=== PATIENT | female | born 1985 | race Hispanic/Latino ===

== ENCOUNTER 2024-02-09 09:16 | Emergency (ER) | payer MEDICAID ==
[~2024-02-09] VITALS: Ht 152.4 cm; Wt 82.1 kg
[2024-02-09 09:19] VITALS: BP 136/77; PULSE 87; RESP 18
[2024-02-09 09:51] LABS: BASOPHILS # (AUTO) 0.03 K/uL (0.00-0.20); BASOPHILS % (AUTO) 0.4 % (0.0-5.0); EOSINOPHILS # (AUTO) 0.06 K/uL (0.00-0.70); EOSINOPHILS % (AUTO) 0.7 % (0.0-8.0); IMMATURE GRANULOCYTE ABSOLUTE 0.03 K/uL (0-1); LYMPHOCYTES # (AUTO) 1.2 K/uL (1.0-4.8); LYMPHOCYTES % (AUTO) 13.9 % (21.0-51.0); MEAN CORPUSCULAR HEMOGLOBIN 30.3 pg (27.0-33.0); MEAN CORPUSCULAR HGB CONC 34.4 g/dL (32.0-36.0); MONOCYTES # (AUTO) 0.6 K/uL (0.1-1.0); MONOCYTES % (AUTO) 6.7 % (3.0-13.0); NEUTROPHILS # (AUTO) 6.5 K/uL (1.8-7.7); NEUTROPHILS % (AUTO) 77.9 % (40.0-77.0); PLATELET COUNT (AUTO) 281 K/uL (130-400); RED BLOOD CELL COUNT(AUTO) 4.66 MIL/uL (4.00-5.50); RED CELL DISTRIBUTION WIDTH 12.5 % (11.0-15.5); WHITE BLOOD COUNT (AUTO) 8.3 K/uL (4.8-10.8)
[2024-02-09] MEDS: ONDANSETRON ODT 4MG TAB SL ONE (09:57)
[2024-02-09] MEDS: KETOROLAC 30MG VIAL (30MG/ML) IM ONE (10:00)
[2024-02-09 10:03] LABS: CREATININE 0.7 mg/dL (0.5-1.0); POTASSIUM 3.3 mmol/L (3.5-5.1)
[2024-02-09 10:10] LABS: ALBUMIN 4.2 g/dL (3.5-5.0); BILIRUBIN,TOTAL 0.4 mg/dL (0.2-1.0); TOTAL PROTEIN, SERUM 8.3 g/dL (6.0-8.3)
[2024-02-09 10:12] LABS: RAPID GROUP A STREP negative (NEGATIVE)
[2024-02-09 10:21] LABS: COVID19 (SARS ANTIGEN RAPID) PRESUMPTIVE NEGATIVE (NEGATIVE); INFLUENZA TYPE A Negative For Type A (NEGATIVE); INFLUENZA TYPE B Negative For Type B (NEGATIVE)
[2024-02-09] MEDS: POTASSIUM BICARB/CIT AC 25 MEQ TABLET.EFF PO ONE (10:24)
[2024-02-09 10:25] LABS: APPEARANCE,URINE TURBID (CLEAR); BILIRUBIN,URINE NEGATIVE (NEGATIVE); COLOR,URINE YELLOW (YELLOW); GLUCOSE, URINE (UA) NEGATIVE (NEGATIVE); KETONES,URINE NEGATIVE (NEGATIVE); LEUKOCYTE ESTERASE ,URINE 500 Leu/uL (NEGATIVE); NITRATE,URINE NEGATIVE (NEGATIVE); OCCULT BLOOD,URINE MODERATE (NEGATIVE); PH,URINE 6.5 (5.0-8.0); PROTEIN,URINE 100 mg/dL (NEGATIVE); UROBILINOGEN,URINE 0.2 mg/dL (0.2-1.0)
[2024-02-09 10:27] LABS: ADD UA MICROSCOPIC YES
[2024-02-09] MEDS ORDERED: IBUP-2070 PO (10:31)
[2024-02-09] MEDS ORDERED: ONDA4TAB10 PO (10:31)
[2024-02-09 10:33] LABS: BACTERIA,URINE FEW /HPF (None Seen); MUCUS,URINE MANY LPF (None Seen); SQUAMOUS EPITHELIAL CELL,UR MANY /HPF (0-2); WBC,URINE 51-100 /HPF (0-1)
[2024-02-09] MEDS ORDERED: CEPH500B PO (10:40)
[2024-02-09] MEDS: CEFTRIAXONE 1G VIAL IM ONE (10:45)
== END 2024-02-09 10:57 | disposition home or self-care (01) ==
LOC: EDH 09:16
DX: N39.0 Urinary tract infection, site not specified (principal); R68.83 Chills (without fever); R11.10 Vomiting, unspecified; R07.89 Other chest pain; Z98.51 Tubal ligation status; Z20.822 Contact with and (suspected) exposure to COVID-19
CPT/HCPCS: 99284; 87426; 80053; 83690; 85025; 87088; 87880; 87804 ×2; 81001; 36415; 96372 ×2; J0696; J1885

== ENCOUNTER 2024-07-12 11:57 | Emergency (ER) | payer SELFPAY ==
[~2024-07-12] VITALS: Ht 149.9 cm; Wt 78.9 kg
[~2024-07-12 11:57] MED LIST: CEPH500B PO; IBUP-2070 PO; ONDA-243 PO
[2024-07-12 12:22] LABS: APPEARANCE,URINE CLEAR (CLEAR); BILIRUBIN,URINE NEGATIVE (NEGATIVE); COLOR,URINE LIGHT-YELLOW (YELLOW); GLUCOSE, URINE (UA) NEGATIVE (NEGATIVE); KETONES,URINE NEGATIVE (NEGATIVE); LEUKOCYTE ESTERASE ,URINE NEGATIVE Leu/uL (NEGATIVE); NITRATE,URINE NEGATIVE (NEGATIVE); OCCULT BLOOD,URINE SMALL (NEGATIVE); PROTEIN,URINE NEGATIVE (NEGATIVE); UROBILINOGEN,URINE 0.2 mg/dL (0.2-1.0)
[2024-07-12 12:31] LABS: ADD UA MICROSCOPIC YES
[2024-07-12 12:52] LABS: BASOPHILS # (AUTO) 0.03 K/uL (0.00-0.20); BASOPHILS % (AUTO) 0.3 % (0.0-5.0); EOSINOPHILS # (AUTO) 0.03 K/uL (0.00-0.70); EOSINOPHILS % (AUTO) 0.3 % (0.0-8.0); HEMATOCRIT 41.3 % (36-48); IMMATURE GRANULOCYTE ABSOLUTE 0.03 K/uL (0-1); LYMPHOCYTES # (AUTO) 1.2 K/uL (1.0-4.8); LYMPHOCYTES % (AUTO) 12.2 % (21.0-51.0); MEAN CORPUSCULAR HEMOGLOBIN 30.8 pg (27.0-33.0); MEAN CORPUSCULAR HGB CONC 33.9 g/dL (32.0-36.0); MEAN CORPUSCULAR VOLUME 90.8 fL (79-99); MONOCYTES # (AUTO) 0.5 K/uL (0.1-1.0); MONOCYTES % (AUTO) 5.1 % (3.0-13.0); NEUTROPHILS # (AUTO) 7.7 K/uL (1.8-7.7); NEUTROPHILS % (AUTO) 81.8 % (40.0-77.0); PLATELET COUNT (AUTO) 286 K/uL (130-400); RED BLOOD CELL COUNT(AUTO) 4.55 MIL/uL (4.00-5.50); RED CELL DISTRIBUTION WIDTH 12.7 % (11.0-15.5); WHITE BLOOD COUNT (AUTO) 9.4 K/uL (4.8-10.8)
[2024-07-12 13:00] LABS: HCG,QUALITATIVE URINE NEGATIVE (NEGATIVE)
[2024-07-12 13:05] LABS: POTASSIUM 3.9 mmol/L (3.5-5.1)
[2024-07-12 13:11] LABS: ALBUMIN 3.7 g/dL (3.5-5.0); BILIRUBIN,TOTAL 0.3 mg/dL (0.2-1.0); TOTAL PROTEIN, SERUM 7.4 g/dL (6.0-8.3)
[2024-07-12 13:13] LABS: BACTERIA,URINE RARE /HPF (None Seen); MUCUS,URINE RARE LPF (None Seen); RBC,URINE 26-50 /HPF (0-1); SQUAMOUS EPITHELIAL CELL,UR RARE /HPF (0-2)
[2024-07-12 14:53] VITALS: BP 122/79; PULSE 70; RESP 20; TEMP 97.9; O2SAT 98
== END 2024-07-12 14:54 | disposition home or self-care (01) ==
LOC: EDH 11:57
DX: N93.9 Abnormal uterine and vaginal bleeding, unspecified (principal); Z79.899 Other long term (current) drug therapy; Z98.890 Other specified postprocedural states
CPT/HCPCS: 36415; 80053; 81001; 81025; 85025

== ENCOUNTER 2025-02-06 19:12 | Emergency (ER) | payer SELFPAY ==
[~2025-02-06] VITALS: Ht 149.9 cm; Wt 79.8 kg
--- NOTE | 2025-02-06 19:37 | NUR ---
ICE PACK GIVEN, BLEEDING IS CONTROLLED.
--- NOTE | 2025-02-06 19:37 | ERN ---
ED Note History of Present Illness Stated Complaint: LEFT HAND FINGER INJURY Chief Complaint: Finger Injury Time Seen by MD: 19:13 Time Seen by Midlevel: 19:13 Dictation: Patient is a 39-year-old female with a history of tubal ligation who presents to the emergency department with complaints of pain to the distal left 3rd digit after she accidentally hit it with a new power tool while working on a closet. Patient reports up-to-date with tetanus a year ago. No other injuries reported. Allergies: Coded Allergies: No Known Drug Allergies (Unverified Allergy, Unknown, 02/09/24) Home Meds Active Scripts Cephalexin Monohydrate (Keflex) 500 Mg Cap, 500 MG PO QID for 7 Days, #28 CAP 0 Refills Prov:MIGUEL A GARCIA [facility] 02/09/24 Ibuprofen (Ibuprofen) 600 Mg Tablet, 600 MG PO Q6H PRN for PAIN, #20 TAB 0 Ref ills Prov:JOSEPRITESH STRONGEL [facility] 02/09/24 Ondansetron (Ondansetron Odt) 4 Mg Tab.rapdis, 4 MG PO Q6HPRN PRN for nausea, #12 TAB 0 Refills Prov:MIGUEL A GARCIA [facility] 02/09/24 Past Medical History Past Medical History: Anxiety Surgical History: Other Surgical History Other: TUBAL LIGATION LMP: Jan 10, 2025 : 2 Para: 2 RN Note Reviewed/Agreed w/PFSH: Yes Review of System Dictation Constitutional: Negative for fever,chills, and weight loss Eyes: Negative for injury, pain,redness, and discharge ENT: Negative for injury,pain or swelling Cardiovascular: Negative for chest pain, palpitations, and edema Respiratory: Negative for shortness of breath, cough, and wheezing, Abdomen/GI: Negative for abdominal pain, nausea, vomiting, diarrhea, and constipation Back: Negative for injury and pain : Negative for injury, bleeding and discharge MS/Extremity: Negative for injury and deformity positive for left 3rd finger injury Skin: Negative for rash, and discoloration Neuro: Negative for headache, weakness, numbness, tingling, and seizure Psych: Negative for suicide ideation, homicidal ideation, and hallucinations Initial Vital Sign VS Vital Signs Date Time Temp Pulse Resp B/P (MAP) Pulse Ox O2 Delivery O2 Flow Rate FiO2 02/06/25 19:22 98.1 100 20 161/86 100 Room Air Physical Exam Dictation Vital Signs reviewed General Appearance: Alert, oriented x 3, no acute distress, well developed, nourished. Head and Face: non-traumatic. Eyes: PERRL, pink conjunctivas, eyelid no trauma, anterior chamber with arcus senilis. Ears: Pinnas intact and no signs of trauma or erythema ear canals clear and no discharge TM no erythema Nose: No discharge, no bleeding. Oropharynx: Mouth normal, tongue pink. pharynx clear,no erythema, tonsils no exudates, no abscesses noted, mucous membrane moist Neck: Supple, non-tender, no thyromegaly, no masses, no JVD, no bruits Breast:Deferred Chest:No tenderness, no crepitus, no paradoxical movement, no retractions Lungs:Clear, well-ventilated, symmetric, no rales, no wheezing, no rhonchi, no stridor, good breath sounds bilaterally Heart: Regular rate, regular rhythm, no murmur, no gallops Vascular: no peripheral edema, Abdomen: Soft, positive bowel sounds, nondistended, no guarding, nontender, no rebound, no masses no hepatomegaly, no splenomegaly, no Lawrence's sign, no hernias. Rectal: Deferred Genital: Deferred Neurological: Normal speech, motor function intact, sensory function intact Musculoskeletal: Neck nontender, full range of motion, back nontender, full range of motion, Extremities: nontender, full range of motion , Skin: Color pink, dry, no turgor, no rash, no lacerations, no contusions. Small abrasion noted to lateral 3rd left nail, with no nail involvement Lymphatic: Deferred Results (Laboratory/Radiology) Laboratory/Radiology REASON: middle finger injury ORDERING PHYSICIAN: HARRISON DEWITT BLOOD BANK ATTENDANT PROCEDURE: FINGER RT - FINGER(S) 2+VWS RT LEFT THIRD FINGER RADIOGRAPHS - 3 VIEWS INDICATION: Middle finger injury COMPARISON: None FINDINGS: AP, lateral, and oblique views. No fracture or subluxation identified. No intrinsic osseous abnormality detected. No radiopaque foreign body noted. IMPRESSION: No evidence for fracture or subluxation. Labs Reviewed?: Yes ED Course ED Course Orders Procedure Category Date Status Time Finger(S) 2+Vws Rt RAD 02/06/25 Resulted 19:20 Wound Care (Er) CPOE 02/06/25 Transmitted 19:20 Neomy PHA 02/06/25 Complete Sulf/Bacitra/Polymyxin 19:30 Acetaminophen 500mg PHA 02/06/25 Complete Tab (Tylenol 500mg T 19:30 Current Medications Medications (Trade) Dose Ordered Sig/Earl Route PRN Reason Start Time Stop Time Status Last Admin Dose Admin Acetaminophen (TYLenol 500MG TAB) 1,000 mg ONCE ONCE PO 02/06/25 19:30 02/06/25 19:31 DC 02/06/25 19:45 Neomycin/ Polymyxin/ Bacitracin (Triple Antibiotic Ointment) 1 appl ONCE ONCE TP 02/06/25 19:30 02/06/25 19:31 DC 02/06/25 19:45 Vital Signs Date Time Temp Pulse Resp B/P (MAP) Pulse Ox O2 Delivery O2 Flow Rate FiO2 02/06/25 19:22 98.1 100 20 161/86 100 Room Air Medical Decision Making MDM Patient is a 39-year-old female with a history of tubal ligation who presents to the emergency department with complaints of pain to the distal left 3rd digit after she accidentally hit it with a new power tool while working on a closet. Patient reports up-to-date with tetanus a year ago. No other injuries reported. Patient is with injury to lateral nail fold on left 3rd digit, minimal bleeding, nail intact. X-ray showed no acute fractures. Patient will be discharged to follow up with PCP. Wound was in place with Neosporin. Differential diagnosis: Finger contusion, finger fracture, laceration Need for hospitalization: Patient does not meet criteria for hospitalization. There are no social concerns with this patient. DX & DISP Disposition: Discharge Departure Impression: Primary Impression: Injury of left middle finger Condition: Stable Scripts Cephalexin Monohydrate (Keflex) 500 Mg Cap 500 MG PO QID for 7 Days, #28 CAP Prov: HARRISON DEWITT BLOOD BANK ATTENDANT 02/06/25 Additional Instructions: Keep your wounds clean and dry. Do not put your wound under water, such as in a bath, pool, or cast. This can slow healing and raise your chance of getting an infection. You should call your doctor if you develop any fever, redness or swelling around the cut, or pus draining from the cut. FOLLOW-UP WITH PRIMARY CARE PROVIDER IN 1 TO 2 DAYS. TAKE MEDICATIONS DIRECTED HERE IN THE EMERGENCY ROOM. OKAY TO CONTINUE HOME MEDICATIONS UNLESS OTHERWISE DISCUSSED DURING YOUR VISIT IN THE EMERGENCY ROOM TODAY. RETURN TO YOUR NEAREST EMERGENCY ROOM IF SYMPTOMS WORSEN OR IF THERE IS NO IMPROVEMENT. CALL 911 IF YOU NEED IMMEDIATE ASSISTANCE. TAKE TYLENOL OR MOTRIN [id number] NEEDED AND IF NO CONTRAINDICATIONS ARE PRESENT. INCREASE ORAL HYDRATION. A WOUND CULTURE OR URINE CULTURE WAS ORDERED HERE IN THE EMERGENCY ROOM DEPARTMENT PLEASE FOLLOW-UP WITH PRIMARY CARE PROVIDER AND ADVISE THEM TO GET REPEAT PORTS FROM OUR FACILITY. IF YOU HAD ANY ISIAH WRAP/SPLINTS THAT WERE APPLIED HERE, PLEASE DO NOT REMOVE THEM UNTIL YOU SEE YOUR PRIMARY CARE OR SPECIALTY. Referrals: SELF,REFERRAL (PCP) Time of Disposition: 19:53 I have reviewed the case, and I agree with, Diagnosis and Plan HARRISON DEWITT BLOOD BANK ATTENDANT Feb 06, 2025 19:37
[2025-02-06] MEDS: NEOMY SULF/BACITRA/POLYMYXIN B 1 EACH PACKET TP ONE (19:45)
[2025-02-06] MEDS: acetaMINOPHEN 500 MG TABLET PO ONE (19:45)
--- NOTE | 2025-02-06 19:50 | HMCIMG ---
LEFT THIRD FINGER RADIOGRAPHS - 3 VIEWS INDICATION: Middle finger injury COMPARISON: None FINDINGS: AP, lateral, and oblique views. No fracture or subluxation identified. No intrinsic osseous abnormality detected. No radiopaque foreign body noted. IMPRESSION: No evidence for fracture or subluxation.
[2025-02-06] MEDS ORDERED: CEPH500B PO (19:54)
[2025-02-06 20:09] VITALS: BP 147/78; PULSE 87; RESP 18; TEMP 98.1; O2SAT 99
== END 2025-02-06 20:25 | disposition home or self-care (01) ==
LOC: EDH 19:12
DX: S69.92XA Unspecified injury of left wrist, hand and finger(s), initial encounter (principal); Z98.51 Tubal ligation status; W22.8XXA Striking against or struck by other objects, initial encounter; Y93.89 Activity, other specified; Y92.89 Other specified places as the place of occurrence of the external cause; Y99.8 Other external cause status
CPT/HCPCS: 73140; 99283